=== PATIENT | female | born 1990 | race Caucasian/White ===

== ENCOUNTER → 2021-08-08 | Outpatient (CLI) | payer OTHER | LOC: KOH-I 12:14 | DX: M25.532 Pain in left wrist (principal); M25.531 Pain in right wrist; M54.9 Dorsalgia, unspecified; M54.2 Cervicalgia; R05 Cough; M25.562 Pain in left knee; M25.561 Pain in right knee | CPT/HCPCS: 73110; 73562 ==

== ENCOUNTER → 2021-10-23 | Outpatient (CLI) | payer OTHER | LOC: KOH-I 13:59 | DX: M54.9 Dorsalgia, unspecified (principal); M54.2 Cervicalgia; R05.9 Cough, unspecified | CPT/HCPCS: 71046; 72040; 72070; 72100 ==